=== PATIENT | male | born 1950 | race Caucasian/White ===

== ENCOUNTER 2022-07-07 14:59 | Inpatient (IN) ==
--- NOTE | 2022-07-07 15:19 | DR.EXTPAIN ---
HPI Time seen Time Seen by Provider: 07/07/22 15:13 Complaint/Symptoms Chief Complaint Doctor Comments: 72 y/o male presents with worsening swelling and pain of bilateral lower exts. Pain is a poor historian, has a h/o chronic edema, h/o cirrhosis. Bilateral leg swelling over the past several days. Has a rash of the right anterior thigh, red, non blanching. Thinks it is from his jeans rubbing against it. Denies any fever, chills. Is short of breath at times. Denies chest pain, nausea, vomiting, bowel or bladder complaints. Nurses notes reviewed Nurses Notes Review: Yes Source History Provided: Patient Mode of arrival Mode of Arrival: Wheelchair PMH PMH Past Medical History: Yes Past Medical History: Cirrhosis Past Medical History Comment: pt poor historian Past Surgical History Comment: pt poor historian Family History Family Medical History Comment: unavailable Social History Alcohol Use: DAILY ROS Review of Systems Constitutional: Weakness Eyes: No Symptoms Reported ENTM: No Symptoms Reported Respiratoy: No Symptoms Reported Cardiovascular: No Symptoms Reported Gastrointestinal/Abdominal: Abdominal Pain Genitourinary: No Symptoms Reported Neurological: Weakness Musculoskeletal: See HPI Integumentary: See HPI Hematologic/Lymphatic: No Symptoms Reported Psychiatric: No Symptoms Reported All Other Systems: Reviewed and Negative PE Vital Signs Vitals: Temperature 98.8 F Pulse Rate 106 Respiratory Rate 18 Blood Pressure [Left Arm] 120/87 Blood Pressure 124/58 O2 Sat by Pulse Oximetry 97 General General Appearance: Alert and In No Apparent Distress Head Head Exam: Normal Inspection Eyes Eye exam: PERRL and EOMI ENT ENT Exam: Normal Exam and Mucous Membranes Moist Neck Neck Exam: Normal Inspection and Full ROM Respiratory Respiratory Exam: Normal Lung Sounds Bilat; negative Accessory Muscle Use or Respiratory Distress Cardiovascular Cardiovascular Exam: Irregular Rhythm and Systolic Murmur (2/6, R ICS) Abdominal Exam Abdominal Exam: Soft and Other (+ hepatomegaly); negative Tenderness Extremities Extremities Exam: Edema (4+ pitting edema, to both thighs. + blisters, oozing of bilateral shins. ) Back Back Exam: Normal Inspection Neurological Neurological Exam: Alert, Oriented X3 and CN II-XII Intact; negative Motor Sensory Deficit Psychiatric Psychiatric Exam: Normal Affect and Normal Mood Other Exam Other Exam: + irregular erythematous purpura of R anterior thigh, non blanching. COURSE Treatment Treatment: 72 y/o male, h/o cirrhosis, presents with worsening bilateral leg swelling. 4+ pitting edema of the lower exts. + oozing, + R thigh purpura. No o bvious cellulitis. W/u initiated. 1648 - CXR without CHF. + pancytopenia. + hypokalemia (2.3). Troponin nml. Ammonia elevated at 44, Lactic acid up at 3.6. Recommend admission for treatment of his fluid overload, and correction of his hypokalemia. Will cover with zosyn for antibiotic coverage. Discussed with Dr Cedeno, covering, will treat with spironolactone/lasix, cautious IV fluids, potassium. ROR Labs Reviewed Laboratory Results Reviewed?: Yes Result Diagrams: 07/07/22 15:10 07/07/22 15:10 Laboratory: WBC 2.8 X10^3/uL (3.6-10.0) L 07/07/22 15:10 RBC 2.33 X10^6/uL (4.7-6.0) L 07/07/22 15:10 Hgb 7.1 g/dL (13.5-18.0) L 07/07/22 15:10 Hct 21.1 % (42.0-54.0) L 07/07/22 15:10 MCV 90.8 fL (80.0-100.0) 07/07/22 15:10 MCH 30.3 pg (27.0-34.0) 07/07/22 15:10 MCHC 33.4 g/dL (33.0-35.0) 07/07/22 15:10 RDW 21.5 % (11.6-16.5) H 07/07/22 15:10 Plt Count 30 X10^3/uL (150.0-450.0) L 07/07/22 15:10 Plt Count Comment Decreased (ADEQUATE) 07/07/22 15:10 MPV 7.2 fL (7.4-11.0) L 07/07/22 15:10 Neut % (Auto) 72.7 % (42.0-75.0) 07/07/22 15:10 Lymph % (Auto) 15.7 % (21.0-51.0) L 07/07/22 15:10 [place] % (Auto) 10.8 % (0.0-13.0) 07/07/22 15:10 Eos % (Auto) 0.6 % (0.9-2.9) L 07/07/22 15:10 Baso % (Auto) 0.2 % (0.2-1.0) 07/07/22 15:10 Neut # (Auto) 2.0 x10^3/uL (2.2-4.8) L 07/07/22 15:10 Lymph # (Auto) 0.4 X10^3/uL (1.3-2.9) L 07/07/22 15:10 [place] # (Auto) 0.3 x10^3/uL (0.3-0.8) 07/07/22 15:10 Eos # (Auto) 0.0 x10^3/uL (0.0-0.2) 07/07/22 15:10 Baso # (Auto) 0.0 X10^3/uL (0.0-0.1) 07/07/22 15:10 Absolute Nucleated RBC 0.2 /100WBC 07/07/22 15:10 Plt Morphology Comment Normal (NORMAL) 07/07/22 15:10 RBC Morphology Abnormal (NORMAL) 07/07/22 15:10 Anisocytosis 1+ A 07/07/22 15:10 Sodium 137 mmol/L (136-145) 07/07/22 15:10 Corrected Sodium 138 mmol/L (136-145) 07/07/22 15:10 Potassium 2.3 mmol/L (3.5-5.1) L* 07/07/22 15:10 Chloride 99 mmol/L (98-107) 07/07/22 15:10 Carbon Dioxide 31.8 mmol/L (21-32) 07/07/22 15:10 BUN 16 mg/dL (7-18) 07/07/22 15:10 Creatinine 1.20 mg/dL (0.70-1.30) 07/07/22 15:10 Est GFR (MDRD) Af Amer > 60 (>60) 07/07/22 15:10 Est GFR (MDRD) Non-Af > 60 (>60) 07/07/22 15:10 Glucose 146 mg/dL (65-99) H 07/07/22 15:10 Lactic Acid 3.6 mmol/L (0.4-2.0) H 07/07/22 15:10 Calcium 7.6 mg/dL (8.5-10.1) L 07/07/22 15:10 Corrected Calcium 9.1 mg/dL (8.5-10.1) 07/07/22 15:10 Total Bilirubin 1.70 mg/dL (0.2-1.0) H 07/07/22 15:10 AST 36 Units/L (15-37) 07/07/22 15:10 ALT 17 Units/L (12-78) 07/07/22 15:10 Alkaline Phosphatase 215 Units/L (46-116) H 07/07/22 15:10 Ammonia 44 umol/L (11-32) H 07/07/22 15:10 Troponin I High Sens 35.1 ng/L (4.0-60.0) 07/07/22 15:10 B-Natriuretic Peptide 454 pg/mL (0-79) H 07/07/22 15:10 Total Protein 5.6 g/dL (6.4-8.2) L 07/07/22 15:10 Albumin 2.1 g/dL (3.4-5.0) L 07/07/22 15:10 Globulin 3.5 g/dL (2.5-4.5) 07/07/22 15:10 Albumin/Globulin Ratio 0.6 Ratio (1.1-2.1) L 07/07/22 15:10 Lipase 33 Units/L (73-393) L 07/07/22 15:10 + pancytopenia, + hypokalemia. + elevated lactic acid, ammonia EKG Rate: 109 [place]: Normal Rhythm: Afib (w/RVR @ 109 bpm) ST: Normal Opioid Opioid Risk Tool Total: 0 Total Score Risk Category: Low Risk Copyright: Jamal PALACIOS predicting aberrant behaviors Discharge Plan Diagnosis Discharge Problem: Acute hypokalemia, Edema, Cirrhosis Discharge Plan Patient Disposition: ADMITTED INPATIENT Condition: Stable Orders to Discharge Patient Discharge Orders: Transfer (Routine); Ordered 07/07/22 Ordered By: Michael Walker
[2022-07-07 15:21] VITALS: BMI 26.6
[2022-07-07 15:43] LABS: BASOPHILS % (AUTO) 0.2 % (0.2-1.0); EOSINOPHILS % (AUTO) 0.6 % (0.9-2.9); HEMATOCRIT 21.1 % (42.0-54.0); HEMOGLOBIN 7.1 g/dL (13.5-18.0); LYMPHOCYTES # (AUTO) 0.4 X10^3/uL (1.3-2.9); LYMPHOCYTES % (AUTO) 15.7 % (21.0-51.0); MEAN CORPUSCULAR HEMOGLOBIN 30.3 pg (27.0-34.0); MEAN CORPUSCULAR HGB CONC 33.4 g/dL (33.0-35.0); MEAN CORPUSCULAR VOLUME 90.8 fL (80.0-100.0); MEAN PLATELET VOLUME 7.2 fL (7.4-11.0); MONOCYTES # (AUTO) 0.3 x10^3/uL (0.3-0.8); MONOCYTES % (AUTO) 10.8 % (0.0-13.0); NEUTROPHILS % (AUTO) 72.7 % (42.0-75.0); RED BLOOD COUNT 2.33 X10^6/uL (4.7-6.0); RED CELL DISTRIBUTION WIDTH 21.5 % (11.6-16.5); WHITE BLOOD COUNT 2.8 X10^3/uL (3.6-10.0)
[2022-07-07 15:52] LABS: ALANINE AMINOTRANSFERASE 17 Units/L (12-78); ALBUMIN 2.1 g/dL (3.4-5.0); ALKALINE PHOSPHATASE 215 Units/L (46-116); AMMONIA 44 umol/L (11-32); ASPARTATE AMINO TRANSFERASE 36 Units/L (15-37); BLOOD UREA NITROGEN 16 mg/dL (7-18); CALCIUM 7.6 mg/dL (8.5-10.1); CARBON DIOXIDE 31.8 mmol/L (21-32); CHLORIDE 99 mmol/L (98-107); COR CA(FOR HYPOALB) 9.1 mg/dL (8.5-10.1); COR NA(FOR HYPERGLY) 138 mmol/L (136-145); LIPASE 33 Units/L (73-393); SODIUM 137 mmol/L (136-145); TOTAL PROTEIN 5.6 g/dL (6.4-8.2); eGFR NON BLACK RACES > 60 (>60)
[2022-07-07 15:57] LABS: ANISOCYTOSIS 1+; PLATELET MORPHOLOGY COMMENT NORMAL (NORMAL)
[2022-07-07 15:59] LABS: LACTIC ACID 3.6 mmol/L (0.4-2.0)
--- NOTE | 2022-07-07 17:10 | RAD ---
HISTORYEDEMASTUDYCHEST, 1 VIEWCOMPARISONNoneTECHNIQUEPortable chest x-rayFINDINGSSkin folds overlie the right and left chest wall. Lungs are clear as are the pleural spaces. No free air or pneumothorax identified. The heart size and mediastinal contours are normal. No acute osseous abnormalities of the chest are demonstrated.IMPRESSIONNo pulmonary infiltrates, edema or pleural fluid collections.Electronically signed by: YVON CALLOWAY (Jul 07, 2022 17:09:00)
[2022-07-07] MEDS ORDERED: VENTOLIN or PROAIR HFA IN PRN (17:47)
[2022-07-07] MEDS ORDERED: PROVENTIL NEB TX 0.083% 2.5MG/ 3ML NEB PRN (17:49)
[2022-07-07] MEDS ORDERED: K-DUR TAB 20 MEQ PO ONE (18:00)
[2022-07-07] MEDS: D5 NS 1,000 ML IV 1,000 ML IV SCH (18:18)
[2022-07-07] MEDS: ZOSYN VIAL 3.375 GRAMS 3.375 G in NS 100 ML IV 100 ML IV SCH ×2 (19:45→22:07)
[2022-07-07] MEDS: K-RIDER 10 MEQ/NS 100 ML 10 MEQ/100 ML BAG IV SCH (20:34)
[2022-07-07] MEDS: ALDACTONE TAB 25 MG PO SCH (21:30)
[2022-07-07] MEDS: M.S. CONTIN 30 MG EXTENDED RELEASE PO SCH (21:30)
[2022-07-07] MEDS: REMERON PO SCH (21:31)
[2022-07-07] MEDS: LASIX IVP SCH (21:31)
[2022-07-08] MEDS: ZOSYN VIAL 3.375 GRAMS 3.375 G in NS 100 ML IV 100 ML IV SCH ×3 (05:19→21:09)
[2022-07-08] MEDS: ALDACTONE TAB 25 MG PO SCH ×3 (05:19→21:09)
[2022-07-08] MEDS: LASIX IVP SCH ×3 (05:19→21:09)
[2022-07-08] MEDS: K-RIDER 10 MEQ/NS 100 ML 10 MEQ/100 ML BAG IV SCH (06:17)
[2022-07-08] MEDS: PERCOCET TAB 5/325 MG PO PRN ×2 (06:20→18:50)
[2022-07-08 07:01] LABS: ALANINE AMINOTRANSFERASE 13 Units/L (12-78); ALBUMIN 1.7 g/dL (3.4-5.0); ALKALINE PHOSPHATASE 151 Units/L (46-116); ASPARTATE AMINO TRANSFERASE 27 Units/L (15-37); BLOOD UREA NITROGEN 14 mg/dL (7-18); CALCIUM 7.6 mg/dL (8.5-10.1); CARBON DIOXIDE 34.2 mmol/L (21-32); CHLORIDE 101 mmol/L (98-107); COR CA(FOR HYPOALB) 9.4 mg/dL (8.5-10.1); CREATININE 0.92 mg/dL (0.70-1.30); SODIUM 138 mmol/L (136-145); TOTAL PROTEIN 4.8 g/dL (6.4-8.2); eGFR NON BLACK RACES > 60 (>60)
[2022-07-08 07:04] LABS: BASOPHILS % (AUTO) 0.6 % (0.2-1.0); EOSINOPHILS % (AUTO) 1.3 % (0.9-2.9); LYMPHOCYTES # (AUTO) 0.4 X10^3/uL (1.3-2.9); LYMPHOCYTES % (AUTO) 18.7 % (21.0-51.0); MEAN CORPUSCULAR HEMOGLOBIN 29.6 pg (27.0-34.0); MEAN CORPUSCULAR HGB CONC 33.2 g/dL (33.0-35.0); MEAN CORPUSCULAR VOLUME 89.2 fL (80.0-100.0); MEAN PLATELET VOLUME 7.6 fL (7.4-11.0); MONOCYTES # (AUTO) 0.2 x10^3/uL (0.3-0.8); MONOCYTES % (AUTO) 9.7 % (0.0-13.0); NEUTROPHILS # (AUTO) 1.7 x10^3/uL (2.2-4.8); NEUTROPHILS % (AUTO) 69.7 % (42.0-75.0); WHITE BLOOD COUNT 2.4 X10^3/uL (3.6-10.0)
[2022-07-08 07:18] LABS: HEMATOCRIT 18.8 % (42.0-54.0); HEMOGLOBIN 6.2 g/dL (13.5-18.0)
[2022-07-08 07:52] LABS: ANISOCYTOSIS 1+; PLATELET MORPHOLOGY COMMENT NORMAL (NORMAL)
[2022-07-08] MEDS ORDERED: POTASSIUM CHL 60 MEQ/NS 0.45% 500 ML IV PRN (08:20)
[2022-07-08] MEDS ORDERED: K-RIDER 10 MEQ/NS 100 ML 10 MEQ/100 ML BAG IV PRN (08:20)
[2022-07-08] MEDS ORDERED: MICRO K EXTEN CAP 10 MEQ PO PRN (08:20)
[2022-07-08] MEDS ORDERED: POTASSIUM CHLORIDE LIQ 20 MEQ UDC PO PRN (08:20)
[2022-07-08] MEDS ORDERED: KLOR-CON PO PRN (08:20)
[2022-07-08] MEDS ORDERED: POTASSIUM CHL 40 MEQ/NS 0.45% 500 ML IV PRN (08:20)
[2022-07-08] MEDS: D5 NS 1,000 ML IV 1,000 ML IV SCH ×2 (08:57→21:08)
[2022-07-08] MEDS: M.S. CONTIN 30 MG EXTENDED RELEASE PO SCH ×2 (08:57→20:38)
[2022-07-08] MEDS: PRAVACHOL PO SCH (08:58)
[2022-07-08] MEDS: PriLOSEC PO SCH (08:58)
[2022-07-08] MEDS: NORVASC TAB 10 MG PO SCH (08:58)
[2022-07-08] MEDS: K-DUR TAB 20 MEQ PO PRN (08:59)
[2022-07-08] MEDS: SYNTHROID 75 mcg TAB PO SCH (08:59)
[2022-07-08] MEDS ORDERED: MAGNESIUM SULFATE 1 GRAM/100 mL PREMIX 1 G/100 ML BAG IV ONE (10:06)
[2022-07-08] MEDS: MAGNESIUM SULFATE 1 GRAM/100 mL PREMIX 1 G/100 ML BAG IV PRN ×2 (10:08→11:19)
[2022-07-08] MEDS ORDERED: NS 500 ML IV 500 ML IV ONE ×2 (15:46→15:54)
--- NOTE | 2022-07-08 19:41 | DR.H&P ---
H&P History & Physical for Day of: H&P Date: 07/08/22 Chief Complaint Chief Complaint: Swelling of the lower extremities Allergies Allergies Allergy/AdvReac Type Severity Reaction Status Date / Time No Known Drug Allergies Allergy Verified 07/07/22 17:06 History of Present Illness History of Present Illness: This is a 72-year-old white male who is a very poor historian. He reports he came to the emergency department yesterday because of redness and draining on his right upper thigh and bilateral lower extremities. He thinks he has cellulitis but exam revealed it looked more like chronic lymphedema. He does report having his cirrhosis likely from alcoholism. He reports that he still drinks beer but does not drink any whiskey or hard liquor at this time. He was noted to be profoundly hypokalemic with a potassium level in the low twos. He was also anemic with a hemoglobin of 6.2, platelet count of 20,000. He has been given K riders since coming in last night and despite that his potassium remains in the mid twos at this time. Past Medical History Past Medical History: Cirrhosis Past Surgical History Surgical History: Ortho Surgery Family History Family Medical History: Diabetes Mellitus and Cancer Social History Does patient currently use any type of tobacco product: Yes Have you used tobacco products in the last 12 months: Yes Type of Tobacco Use: Cigarettes Does any household member use tobacco: No Alcohol Use: Rarely Drug Use: None Medications Home Medications: No Known Drug Allergies Allergy (Verified 07/07/22 17:06) CONTINUE taking the following medications albuterol sulfate 90 mcg/actuation aerosol inhaler 2 puff inhalation Q4-6H PRN 07/07/22 [History] amlodipine 10 mg tablet 1 tab PO QDAY 07/07/22 [History] baclofen 10 mg tablet 1 tab PO TID 07/07/22 [History] furosemide 20 mg tablet 1 tab PO Q OTHER DAY 07/07/22 [History] hydrochlorothiazide 25 mg tablet 0.5 tab PO QDAY 07/07/22 [History] levothyroxine 75 mcg tablet 1 tab PO QAM 07/07/22 [History] mirtazapine 7.5 mg tablet 1 tab PO QPM 07/07/22 [History] morphine 30 mg tablet,extended release 1 tab PO BID 07/07/22 [History] omeprazole 20 mg capsule,delayed release 1 cap PO QDAY 07/07/22 [History] oxycodone-acetaminophen 10 mg-325 mg tablet 1 tab PO TID PRN 07/07/22 [History] potassium chloride 10 mEq tablet,extended release(part/cryst) 1 tab PO QDAY 07/07/22 [History] pravastatin 20 mg tablet 1 tab PO QDAY 07/07/22 [History] triamcinolone acetonide 0.1 % topical cream 1 applic topical BID 07/07/22 [History] Labs Result Diagrams: 07/08/22 16:06 07/08/22 16:06 Labs: Laboratory WBC 2.4 X10^3/uL (3.6-10.0) L 07/08/22 05:55 RBC 2.10 X10^6/uL (4.7-6.0) L 07/08/22 05:55 Hgb 6.2 g/dL (13.5-18.0) L* 07/08/22 05:55 Hct 18.8 % (42.0-54.0) L* 07/08/22 05:55 MCV 89.2 fL (80.0-100.0) 07/08/22 05:55 MCH 29.6 pg (27.0-34.0) 07/08/22 05:55 MCHC 33.2 g/dL (33.0-35.0) 07/08/22 05:55 RDW 21.0 % (11.6-16.5) H 07/08/22 05:55 Plt Count 51 X10^3/uL (150.0-450.0) L 07/08/22 16:06 Plt Count Comment Decreased (ADEQUATE) 07/08/22 05:55 MPV 7.6 fL (7.4-11.0) 07/08/22 05:55 Neut % (Auto) 69.7 % (42.0-75.0) 07/08/22 05:55 Lymph % (Auto) 18.7 % (21.0-51.0) L 07/08/22 05:55 [place] % (Auto) 9.7 % (0.0-13.0) 07/08/22 05:55 Eos % (Auto) 1.3 % (0.9-2.9) 07/08/22 05:55 Baso % (Auto) 0.6 % (0.2-1.0) 07/08/22 05:55 Neut # (Auto) 1.7 x10^3/uL (2.2-4.8) L 07/08/22 05:55 Lymph # (Auto) 0.4 X10^3/uL (1.3-2.9) L 07/08/22 05:55 [place] # (Auto) 0.2 x10^3/uL (0.3-0.8) L 07/08/22 05:55 Eos # (Auto) 0.0 x10^3/uL (0.0-0.2) 07/08/22 05:55 Baso # (Auto) 0.0 X10^3/uL (0.0-0.1) 07/08/22 05:55 Absolute Nucleated RBC 0.3 /100WBC 07/08/22 05:55 Total Counted 25 07/08/22 05:55 Neutrophils % (Manual) 75 % (39-76) 07/08/22 05:55 Lymphocytes % (Manual) 20 % (13-43) 07/08/22 05:55 Monocytes % (Manual) 5 % (4-9) 07/08/22 05:55 Plt Morphology Comment Normal (NORMAL) 07/08/22 05:55 RBC Morphology Abnormal (NORMAL) 07/08/22 05:55 Anisocytosis 1+ A 07/08/22 05:55 Sodium 138 mmol/L (136-145) 07/08/22 05:55 Corrected Sodium TNP 07/08/22 05:55 Potassium 2.7 mmol/L (3.5-5.1) L* 07/08/22 16:06 Chloride 101 mmol/L (98-107) 07/08/22 05:55 Carbon Dioxide 34.2 mmol/L (21-32) H 07/08/22 05:55 BUN 14 mg/dL (7-18) 07/08/22 05:55 Creatinine 0.92 mg/dL (0.70-1.30) 07/08/22 05:55 Est GFR (MDRD) Af Amer > 60 (>60) 07/08/22 05:55 Est GFR (MDRD) Non-Af > 60 (>60) 07/08/22 05:55 Glucose 102 mg/dL (65-99) H 07/08/22 05:55 POC Glucose (mg/dL) 200 mg/dL (65-99) H 07/08/22 16:04 Lactic Acid 2.4 mmol/L (0.4-2.0) H 07/07/22 21:10 Calcium 7.6 mg/dL (8.5-10.1) L 07/08/22 05:55 Corrected Calcium 9.4 mg/dL (8.5-10.1) 07/08/22 05:55 Magnesium 1.5 mg/dL (2.0-2.9) L 07/08/22 05:55 Total Bilirubin 1.70 mg/dL (0.2-1.0) H 07/08/22 05:55 AST 27 Units/L (15-37) 07/08/22 05:55 ALT 13 Units/L (12-78) 07/08/22 05:55 Alkaline Phosphatase 151 Units/L (46-116) H 07/08/22 05:55 Ammonia 34 umol/L (11-32) H 07/08/22 08:48 Troponin I High Sens 35.1 ng/L (4.0-60.0) 07/07/22 15:10 B-Natriuretic Peptide 454 pg/mL (0-79) H 07/07/22 15:10 Total Protein 4.8 g/dL (6.4-8.2) L 07/08/22 05:55 Albumin 1.7 g/dL (3.4-5.0) L 07/08/22 05:55 Globulin 3.1 g/dL (2.5-4.5) 07/08/22 05:55 Albumin/Globulin Ratio 0.5 Ratio (1.1-2.1) L 07/08/22 05:55 Lipase 33 Units/L (73-393) L 07/07/22 15:10 Blood Type B POSITIVE 07/08/22 08:23 Antibody Screen Negative 07/08/22 08:23 Crossmatch See Detail 07/08/22 08:23 Review of Systems Constitutional: Weakness and Malaise Eyes: No Symptoms Reported ENT: No Symptoms Reported Respiratory: No Symptoms Reported Cardiovascular: No Symptoms Reported Gastrointestinal: No Symptoms Reported Genitourinary: No Symptoms Reported Musculoskeletal: No Symptoms Reported Skin: Rash and Lesions Neurological: Weakness Physical Exam Vital Signs: Temperature 98.4 F Pulse Rate [Left Brachial] 114 Pulse Rate 106 Respiratory Rate 22 Blood Pressure [Left Arm] 129/60 Blood Pressure 132/59 O2 Sat by Pulse Oximetry 100 Oriented: Normal, Time, Person and Place Eyes: Normal Ear: Normal Nose: Normal Respiratory: Clear Throughout Cardiovascular: Normal Tenderness: Normal Skin: Rash, Maculopapular, Petechial and Red Musculoskeletal: Normal Psychiatric: Normal Mood Description: Calm Affect: Normal Speech Pattern: Clear and Appropriate Assessment/Plan (1) Acute hypokalemia: Status: Acute Plan: Potassium replacement protocol (2) Edema: Status: Acute Plan: Continue spironolactone (3) Cirrhosis: Status: Acute Plan: Patient advised to abstain from alcohol, consult gastroenterology. (4) Anemia: Status: Acute Plan: Type and cross 2 units packed red blood cells and transfuse (5) Thrombocytopenia: Status: Acute Plan: Transfuse 1 pack of platelets today. (6) Lymphedema of both lower extremities: Status: Acute Plan: Patient is currently receiving IV Zosyn which she was started on the emergency department for possible lower extremity cellulitis. We will consult general surgery for central line placement so we can transfuse blood for him today and give him a pack of platelets. Review H&P Reviewed: Yes Patient was examined?: Yes
[2022-07-08] MEDS: REMERON PO SCH (21:08)
[2022-07-09] MEDS ORDERED: NS 250 ML IV 250 ML IV ONE (00:17)
[2022-07-09 04:58] LABS: MONOCYTES # (AUTO) 0.6 x10^3/uL (0.3-0.8)
[2022-07-09 05:04] LABS: BASOPHILS % (AUTO) 0.9 % (0.2-1.0); EOSINOPHILS % (AUTO) 0.1 % (0.9-2.9); HEMATOCRIT 25.6 % (42.0-54.0); LYMPHOCYTES # (AUTO) 0.6 X10^3/uL (1.3-2.9); LYMPHOCYTES % (AUTO) 10.9 % (21.0-51.0); MEAN CORPUSCULAR HEMOGLOBIN 29.9 pg (27.0-34.0); MEAN CORPUSCULAR HGB CONC 34.1 g/dL (33.0-35.0); MEAN CORPUSCULAR VOLUME 87.7 fL (80.0-100.0); MONOCYTES % (AUTO) 11.5 % (0.0-13.0); NEUTROPHILS # (AUTO) 4.3 x10^3/uL (2.2-4.8); NEUTROPHILS % (AUTO) 76.6 % (42.0-75.0); RED BLOOD COUNT 2.93 X10^6/uL (4.7-6.0); WHITE BLOOD COUNT 5.6 X10^3/uL (3.6-10.0)
[2022-07-09 05:05] LABS: HEMOGLOBIN 8.7 g/dL (13.5-18.0)
[2022-07-09] MEDS: ALDACTONE TAB 25 MG PO SCH ×3 (05:11→21:11)
[2022-07-09] MEDS: LASIX IVP SCH ×3 (05:11→21:11)
[2022-07-09] MEDS: ZOSYN VIAL 3.375 GRAMS 3.375 G in NS 100 ML IV 100 ML IV SCH ×3 (05:12→21:11)
[2022-07-09 05:18] LABS: ALANINE AMINOTRANSFERASE 11 Units/L (12-78); ALBUMIN 1.8 g/dL (3.4-5.0); ALKALINE PHOSPHATASE 183 Units/L (46-116); ASPARTATE AMINO TRANSFERASE 27 Units/L (15-37); BLOOD UREA NITROGEN 14 mg/dL (7-18); CALCIUM 7.8 mg/dL (8.5-10.1); CHLORIDE 102 mmol/L (98-107); COR CA(FOR HYPOALB) 9.6 mg/dL (8.5-10.1); COR NA(FOR HYPERGLY) 139 mmol/L (136-145); CREATININE 0.87 mg/dL (0.70-1.30); SODIUM 138 mmol/L (136-145); TOTAL PROTEIN 5.3 g/dL (6.4-8.2); eGFR NON BLACK RACES > 60 (>60)
[2022-07-09] MEDS: K-DUR TAB 20 MEQ PO PRN (05:38)
[2022-07-09] MEDS: MAGNESIUM SULFATE 1 GRAM/100 mL PREMIX 1 G/100 ML BAG IV PRN ×2 (05:38→18:00)
[2022-07-09] MEDS ORDERED: ALBUMIN HUMAN 25%- 100 ML 100 ML IV ONE (09:00)
[2022-07-09] MEDS: D5 NS 1,000 ML IV 1,000 ML IV SCH ×2 (09:08→22:13)
[2022-07-09] MEDS: SYNTHROID 75 mcg TAB PO SCH (09:08)
[2022-07-09] MEDS: NORVASC TAB 10 MG PO SCH (09:08)
[2022-07-09] MEDS: M.S. CONTIN 30 MG EXTENDED RELEASE PO SCH ×2 (09:08→20:47)
[2022-07-09] MEDS: PriLOSEC PO SCH (09:08)
[2022-07-09] MEDS: PRAVACHOL PO SCH (09:08)
[2022-07-09] MEDS ORDERED: XYLOCAINE 1 % (PLAIN) ONE (10:59)
[2022-07-09 11:43] LABS: INR 2.01 (0.8-1.3)
--- NOTE | 2022-07-09 15:43 | PCM.PROG ---
Progress Note Progress Note for Day of Date of Exam: 07/09/22 Subjective Subjective: The patient is sitting up in bed having some breakfast this morning. He has no new complaints. 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 Ziegler who plans on seeing him later today. I have informed the patient about this and also counseled him on complete alcohol cessation secondary to his alcoholic cirrhosis. Dr. Sanders our general surgeon plans on a paracentesis later today. Past Medical Family Social History Allergies: Allergies No Known Drug Allergies Allergy (Verified 07/07/22 17:06) Review of Systems ROS: No change since H&P Vital Signs and I&O's Vital Signs: Temperature 98.1 F Pulse Rate [Left Brachial] 103 Pulse Rate 106 Respiratory Rate 20 Blood Pressure [Left Arm] 119/58 Blood Pressure 132/59 O2 Sat by Pulse Oximetry 97 Intake and Output: Intake & Output 07/07/22 07/08/22 07/09/22 07/10/22 11:59 11:59 11:59 11:59 Intake Total 1472 / 1472 4950 / 4950 500 / 500 Output Total 1350 / 1350 1050 / 1050 Balance 122 / 122 3900 / 3900 500 / 500 Physical Exam Oriented: Normal, Time, Person and Place Eyes: Normal Ear: Normal Nose: Normal Respiratory: Normal Cardiovascular: Normal Tenderness: Normal Skin: Rash, Maculopapular, Petechial and Red Musculoskeletal: Normal Psychiatric: Normal Mood Description: Calm Affect: Normal Speech Pattern: Appropriate Laboratory and Diagnostics Result Diagrams: 07/09/22 04:44 07/09/22 13:09 Labs: 07/09/22 13:09 Paracentesis Gram Stain - Final 07/07/22 15:24 Blood Blood Culture - Preliminary 07/07/22 15:10 Blood Blood Culture - Preliminary Laboratory WBC 5.6 X10^3/uL (3.6-10.0) 07/09/22 04:44 RBC 2.93 X10^6/uL (4.7-6.0) L 07/09/22 04:44 Hgb 8.7 g/dL (13.5-18.0) L D 07/09/22 04:44 Hct 25.6 % (42.0-54.0) L 07/09/22 04:44 MCV 87.7 fL (80.0-100.0) 07/09/22 04:44 MCH 29.9 pg (27.0-34.0) 07/09/22 04:44 MCHC 34.1 g/dL (33.0-35.0) 07/09/22 04:44 RDW 19.0 % (11.6-16.5) H 07/09/22 04:44 Plt Count 31 X10^3/uL (150.0-450.0) L 07/09/22 04:44 Plt Count Comment Decreased (ADEQUATE) 07/08/22 05:55 MPV 8.0 fL (7.4-11.0) 07/09/22 04:44 Neut % (Auto) 76.6 % (42.0-75.0) H 07/09/22 04:44 Lymph % (Auto) 10.9 % (21.0-51.0) L 07/09/22 04:44 [place] % (Auto) 11.5 % (0.0-13.0) 07/09/22 04:44 Eos % (Auto) 0.1 % (0.9-2.9) L 07/09/22 04:44 Baso % (Auto) 0.9 % (0.2-1.0) 07/09/22 04:44 Neut # (Auto) 4.3 x10^3/uL (2.2-4.8) 07/09/22 04:44 Lymph # (Auto) 0.6 X10^3/uL (1.3-2.9) L 07/09/22 04:44 [place] # (Auto) 0.6 x10^3/uL (0.3-0.8) 07/09/22 04:44 Eos # (Auto) 0.0 x10^3/uL (0.0-0.2) 07/09/22 04:44 Baso # (Auto) 0.0 X10^3/uL (0.0-0.1) 07/09/22 04:44 Absolute Nucleated RBC 0.1 /100WBC 07/09/22 04:44 Total Counted 25 07/08/22 05:55 Neutrophils % (Manual) 75 % (39-76) 07/08/22 05:55 Lymphocytes % (Manual) 20 % (13-43) 07/08/22 05:55 Monocytes % (Manual) 5 % (4-9) 07/08/22 05:55 Plt Morphology Comment Normal (NORMAL) 07/08/22 05:55 RBC Morphology Abnormal (NORMAL) 07/08/22 05:55 Anisocytosis 1+ A 07/08/22 05:55 PT 21.9 SECONDS (11.8-14.3) 07/09/22 11:22 INR Target Range - 07/09/22 11:22 INR 2.01 (0.8-1.3) H 07/09/22 11:22 APTT 42.7 SECONDS (22.9-36.5) H 07/09/22 11:22 PTT Comment - 07/09/22 11:22 Sodium 138 mmol/L (136-145) 07/09/22 04:44 Corrected Sodium 139 mmol/L (136-145) 07/09/22 04:44 Potassium 3.5 mmol/L (3.5-5.1) 07/09/22 04:44 Chloride 102 mmol/L (98-107) 07/09/22 04:44 Carbon Dioxide 32.0 mmol/L (21-32) 07/09/22 04:44 BUN 14 mg/dL (7-18) 07/09/22 04:44 Creatinine 0.87 mg/dL (0.70-1.30) 07/09/22 04:44 Est GFR (MDRD) Af Amer > 60 (>60) 07/09/22 04:44 Est GFR (MDRD) Non-Af > 60 (>60) 07/09/22 04:44 Glucose 167 mg/dL (65-99) H 07/09/22 13:09 POC Glucose (mg/dL) 157 mg/dL (65-99) H 07/09/22 11:48 Lactic Acid 2.4 mmol/L (0.4-2.0) H 07/07/22 21:10 Calcium 7.8 mg/dL (8.5-10.1) L 07/09/22 04:44 Corrected Calcium 9.6 mg/dL (8.5-10.1) 07/09/22 04:44 Magnesium 1.6 mg/dL (2.0-2.9) L 07/09/22 04:44 Total Bilirubin 3.10 mg/dL (0.2-1.0) H 07/09/22 04:44 AST 27 Units/L (15-37) 07/09/22 04:44 ALT 11 Units/L (12-78) L 07/09/22 04:44 Alkaline Phosphatase 183 Units/L (46-116) H 07/09/22 04:44 Ammonia 34 umol/L (11-32) H 07/08/22 08:48 Troponin I High Sens 35.1 ng/L (4.0-60.0) 07/07/22 15:10 B-Natriuretic Peptide 454 pg/mL (0-79) H 07/07/22 15:10 Total Protein 5.3 g/dL (6.4-8.2) L 07/09/22 04:44 Albumin Cancelled 07/09/22 13:09 Globulin 3.5 g/dL (2.5-4.5) 07/09/22 04:44 Albumin/Globulin Ratio 0.5 Ratio (1.1-2.1) L 07/09/22 04:44 Lipase 33 Units/L (73-393) L 07/07/22 15:10 Fluid pH 7.0 07/09/22 13:09 Cytology Specimen To follow 07/09/22 13:09 Blood Type B POSITIVE 07/08/22 08:23 Antibody Screen Negative 07/08/22 08:23 Crossmatch See Detail 07/08/22 08:23 Plan (1) Acute hypokalemia: Status: Acute Plan: Potassium replacement protocol (2) Edema: Status: Acute Plan: Continue spironolactone (3) Cirrhosis: Status: Acute Plan: Patient advised to abstain from alcohol, consult gastroenterology. (4) Anemia: Status: Acute Plan: Type and cross 2 units packed red blood cells and transfuse (5) Thrombocytopenia: Status: Acute Plan: Transfuse 1 pack of platelets today. (6) Lymphedema of both lower extremities: Status: Acute Plan: Patient is currently receiving IV Zosyn which she was started on the emergency department for possible lower extremity cellulitis. We will consult general surgery for central line placement so we can transfuse blood for him today and give him a pack of platelets. (7) Ascites: Status: Acute Plan: Paracentesis today per general surgery.
--- NOTE | 2022-07-09 18:07 | DR.CONSULT ---
Consult - Consultation for Day of: Date: 07/09/22 (Dr. Ziegler) - Chief Complaint Chief Complaint: Abnormal LFTs - History of Present Illness History of Present Illness: Pt is a 72 y/o who is referre for abnormal LFTs. Pt has no GI complaints. Denies dysphagia, dyspepsia, abdominal pain, N/V, constipation, diarrhea, melena, and hematochezia. Last EGD 5+ years ago. Pt reports previous colon, unable to recall when, but states "I'm due for a co lonoscopy now". Pt has a family history of colon cancer (father). He reports he came to the emergency department because of redness and draining on his right upper thigh and bilateral lower extremities. He thinks he has cellulitis but exam revealed it looked more like chronic lymphedema. He does report having his cirrhosis likely from alcoholism. He reports that he still drinks beer but does not drink any whiskey or hard liquor at this time. He was noted to be profoundly hypokalemic with a potassium level in the low twos. - Past Medical History Past Medical History: Cirrhosis - Past Surgical History Surgical History: Ortho Surgery - Family History Family Medical History: Diabetes Mellitus, Cancer - Social History Does patient currently use any type of tobacco product: Yes Have you used tobacco products in the last 12 months: Yes Type of Tobacco Use: Cigarettes Does any household member use tobacco: No Alcohol Use: Rarely Drug Use: None - Medications Home Medications: No Known Drug Allergies Allergy (Verified 07/07/22 17:06) CONTINUE taking the following medications albuterol sulfate 90 mcg/actuation aerosol inhaler 2 puff inhalation Q4-6H PRN 07/07/22 [History] amlodipine 10 mg tablet 1 tab PO QDAY 07/07/22 [History] baclofen 10 mg tablet 1 tab PO TID 07/07/22 [History] furosemide 20 mg tablet 1 tab PO Q OTHER DAY 07/07/22 [History] hydrochlorothiazide 25 mg tablet 0.5 tab PO QDAY 07/07/22 [History] levothyroxine 75 mcg tablet 1 tab PO QAM 07/07/22 [History] mirtazapine 7.5 mg tablet 1 tab PO QPM 07/07/22 [History] morphine 30 mg tablet,extended release 1 tab PO BID 07/07/22 [History] omeprazole 20 mg capsule,delayed release 1 cap PO QDAY 07/07/22 [History] oxycodone-acetaminophen 10 mg-325 mg tablet 1 tab PO TID PRN 07/07/22 [History] potassium chloride 10 mEq tablet,extended release(part/cryst) 1 tab PO QDAY 07/07/22 [History] pravastatin 20 mg tablet 1 tab PO QDAY 07/07/22 [History] triamcinolone acetonide 0.1 % topical cream 1 applic topical BID 07/07/22 [History] - Review of Systems Constitutional: No Symptoms Reported. denies: See HPI, Fever, Chills, Sweats, Weakness, Malaise, Other Eyes: No Symptoms Reported. denies: See HPI, Pain, Vision Change, Conjunctivae Inflammation, Eyelid Inflammation, Redness, Other ENT: No Symptoms Reported. denies: See HPI, Ear Pain, Ear Discharge, Nose Pain, Nose Discharge, Nose Congestion, Mouth Pain, Mouth Swelling, Throat Pain, Throat Swelling, Other Respiratory: No Symptoms Reported. denies: See HPI, Cough, Dry, Shortness of Breath, Hemoptysis, SOB with Excertion, Pleuritic Pain, Sputum, Wheezing, Other Cardiovascular: No Symptoms Reported, Edema. denies: Chest Pain, See HPI, Palpitations, Orthopnea, Paroxysmal Noc. Dyspnea, Light Headedness, Other Gastrointestinal: No Symptoms Reported. denies: See HPI, Nausea, Vomiting, Abdominal Pain, Diarrhea, Constipation, Melena, Hematochezia, Other Genitourinary: No Symptoms Reported. denies: See HPI, Dysuria, Frequency, Incontinence, Hematuria, Retention, Other Musculoskeletal: No Symptoms Reported. denies: See HPI, Shoulder Pain, Arm Pain, Back Pain, Hand Pain, Leg Pain, Foot Pain, Neck Pain, Other Skin: See HPI. denies: No Symptoms Reported, Rash, Lesions, Jaundice, Bruising, Wound, Ecchymosis, Other Neurological: No Symptoms Reported. denies: See HPI, Weakness, Numbness, Incoordination, Change in Speech, Confusion, Seizures, Other - Physical Exam Vital Signs: Temperature 98.3 F Pulse Rate [Left Brachial] 97 Pulse Rate 106 Respiratory Rate 18 Blood Pressure [Left Arm] 130/61 Blood Pressure 132/59 O2 Sat by Pulse Oximetry 99 Oriented: Normal. negative: Time, Person, Place, Not Oriented, Unable to test, Other Eyes: negative: Normal, Blurred Vision, Diplopia, Discharge, Pain, Redness, Photophobia, Other Ear: negative: Normal, Right, Left, Swelling, Ecchymosis, Hemotypanum, Abrasion, Laceration Nose: negative: Normal, Injected, Discharge, Blood, Other Throat: negative: Normal, Tonsillar Hypertrophy, Red, Exudate, Dry, Other Respiratory: Clear Throughout. negative: Diminished Throughout, Rhonchi Throughout, Rales Throughout, Wheezes Throughout, RUL Clear, RML Clear, RLL Clear, LYUDMILA Clear, LML Clear, LLL Clear, RUL Diminished, RML Diminished, RLL Diminished, LYUDMILA Diminished, LML Diminished, LLL Diminished, RUL Absent, RML Absent, RLL Absent, LYUDMILA Absent, LML Absent, LLL Absent, RUL Rhonchi, RML Rhonchi, RLL Rhonchi, LYUDMILA Rhonchi, LML Rhonchi, LLL Rhonchi, RUL Insp. Wheeze, RML Insp. Wheeze, RLL Insp. Wheeze, LYUDMILA Insp.Wheeze, LML Insp.Wheeze, LLL Insp.Wheeze, RUL Exp. Wheeze, RML Exp. Wheeze, RLL Exp. Wheeze, LYUDMILA Exp. Wheeze, LML Exp. Wheeze, LLL Exp. Wheeze, RUL Rales, RML Rales, RLL Rales, LYUDMILA Rales, LML Rales, LLL Rales, RUL Rub, RML Rub, RLL Rub, LYUDMILA Rub, LML Rub, LLL Rub, RUL Squeak, RML Squeak, RLL Squeak, LYUDMILA Squeak, LML Squeak, LLL Squeak Cardiovascular: Normal. negative: Tachycardia, Bradycardia, Irregular, S3, S4, Systolic, Diastolic, Murmur, Edema, Other : Normal. negative: Dysuria, Hematuria, Frequency, Discharge, Testicular Pain, Bleeding, , Other Auscultation: Bowel Sounds: Normal. negative: Bruit, Absent, Increased, Decreased, High Pitched, Other Palpation: negative: Normal, Spleen Enlarged, Liver Enlarged, Mass Pulsatile, Other Tenderness: Other. negative: Normal, Diffuse, RUQ, RLQ, LUQ, LLQ, Epigastric, Periumbilical, Suprapubic, Mild, Moderate, Severe, Rebound, Guarding, Rigidity Skin: Red (BLE). negative: Normal, Decreased Turgur, Rash, Papular, Macular, Maculopapular, Vesicular, Pustular, Petechial, Tender, Hot, Diaphoresis, Wound, Bruising, Ecchymosis, Other Musculoskeletal: negative: Normal, Right, Left, Shoulder, Clavicle, Arm, Elbow, Forearm, Wrist, Hand, Hip, Thigh, Knee, Leg, Ankle, Foot, Back:Thoracic, Back:Lumbar, Back:Midline, Back:Paraspinous, Pelvis, Swelling, Tender, Deformity, Pulse Deficit, Motor Deficit, Sensory Deficit, Instability, Crepitance Psychiatric: Normal. negative: Anxiety, Depression, Agitation, Other Mood Description: Calm. negative: Angry, Apathetic, Depressed, Fearful, Flat, Happy, Hostile, Sad, Suspicious, Withdrawn, Anxious, Appropriate, Labile Affect: negative: Angry, Anxious, Depressed, Flat, Hysterical, Quiet, Violent, Normal Speech Pattern: Clear. negative: Appropriate, Unclear, Inappropriate, Delayed, Slurred, Excessive, Aphasic, Artificially Ventilated, Trach(not ventilated) - Plan Plan: Assessment: 1. Liver cirrhosis, likely secondary to ETOH abuse, R/O other etiology. 2. Anemia. 3. GERD, H/O PUD. 4. Family history of colon cancer. Plan: Serologic liver workup, monitor LFTs. Monitor Hgb, transfuse as needed. May need EGD if recurrent drop in Hgb. Patient does not qualify for liver transplant due to active alcohol use. Plan D/W Dr. Ziegler - Allergies Allergies/Adverse Reactions: Allergies Allergy/AdvReac Type Severity Reaction Status Date / Time No Known Drug Allergies Allergy Verified 07/07/22 17:06
[2022-07-09] MEDS: NovoLIN R (or HumuLIN R) SC PRN (18:20)
[2022-07-09] MEDS: REMERON PO SCH (20:47)
[2022-07-10] MEDS: D5 NS 1,000 ML IV 1,000 ML IV SCH ×2 (00:58→11:22)
[2022-07-10 03:47] LABS: BASOPHILS % (AUTO) 0.3 % (0.2-1.0); EOSINOPHILS % (AUTO) 0.3 % (0.9-2.9); HEMATOCRIT 23.5 % (42.0-54.0); HEMOGLOBIN 8.2 g/dL (13.5-18.0); LYMPHOCYTES # (AUTO) 0.6 X10^3/uL (1.3-2.9); LYMPHOCYTES % (AUTO) 11.9 % (21.0-51.0); MEAN CORPUSCULAR HEMOGLOBIN 30.3 pg (27.0-34.0); MEAN CORPUSCULAR VOLUME 86.5 fL (80.0-100.0); MEAN PLATELET VOLUME 7.7 fL (7.4-11.0); MONOCYTES # (AUTO) 0.6 x10^3/uL (0.3-0.8); MONOCYTES % (AUTO) 12.1 % (0.0-13.0); NEUTROPHILS # (AUTO) 3.6 x10^3/uL (2.2-4.8); NEUTROPHILS % (AUTO) 75.4 % (42.0-75.0); RED BLOOD COUNT 2.72 X10^6/uL (4.7-6.0); RED CELL DISTRIBUTION WIDTH 19.1 % (11.6-16.5); WHITE BLOOD COUNT 4.7 X10^3/uL (3.6-10.0)
[2022-07-10 03:55] LABS: ALANINE AMINOTRANSFERASE 12 Units/L (12-78); ALKALINE PHOSPHATASE 185 Units/L (46-116); ASPARTATE AMINO TRANSFERASE 21 Units/L (15-37); BLOOD UREA NITROGEN 12 mg/dL (7-18); CALCIUM 7.8 mg/dL (8.5-10.1); CARBON DIOXIDE 34.5 mmol/L (21-32); CHLORIDE 101 mmol/L (98-107); COR CA(FOR HYPOALB) 9.4 mg/dL (8.5-10.1); COR NA(FOR HYPERGLY) 137 mmol/L (136-145); CREATININE 0.84 mg/dL (0.70-1.30); SODIUM 136 mmol/L (136-145); TOTAL PROTEIN 5.4 g/dL (6.4-8.2); eGFR NON BLACK RACES > 60 (>60)
[2022-07-10 04:15] LABS: IRON 44 ug/dL (50-175)
[2022-07-10] MEDS: MAGNESIUM SULFATE 1 GRAM/100 mL PREMIX 1 G/100 ML BAG IV PRN ×3 (04:39→14:22)
[2022-07-10] MEDS: ALDACTONE TAB 25 MG PO SCH ×3 (05:16→21:15)
[2022-07-10] MEDS: LASIX IVP SCH ×3 (05:17→21:14)
[2022-07-10] MEDS: ZOSYN VIAL 3.375 GRAMS 3.375 G in NS 100 ML IV 100 ML IV SCH ×3 (06:06→21:14)
[2022-07-10] MEDS: PERCOCET TAB 5/325 MG PO PRN ×2 (06:06→16:23)
[2022-07-10] MEDS: M.S. CONTIN 30 MG EXTENDED RELEASE PO SCH ×2 (09:06→20:23)
[2022-07-10] MEDS: PriLOSEC PO SCH (09:06)
[2022-07-10] MEDS: PRAVACHOL PO SCH (09:06)
[2022-07-10] MEDS: NORVASC TAB 10 MG PO SCH (09:06)
[2022-07-10] MEDS: SYNTHROID 75 mcg TAB PO SCH (09:06)
[2022-07-10] MEDS: ALBUMIN HUMAN 25%- 100 ML 100 ML IV SCH (09:07)
--- NOTE | 2022-07-10 13:36 | PCM.PROG ---
Progress Note Progress Note for Day of Date of Exam: 07/10/22 Subjective Subjective: The patient is sitting up in bed having some breakfast this morning. He has no new complaints. He spoke with a welding machine operator helper gas nurse practitioner yesterday. She has started a work-up on him for other causes of cirrhosis of the liver. Gram stain of the paracentesis fluid is negative thus far as well as the blood cultures x2 he had on admission. Overall he is looking better his potassium is still little low he needs replacement as well as his magnesium level. It is noted his platelet count is the same as yesterday at 31,000. He did receive the second unit of platelets yesterday. However it is noted that his hemoglobin has dropped from 8.7-8.2 this morning. We will repeat his labs again tomorrow after we correct his electrolytes today. And we will give him blood and platelets if needed tomorrow and we will also make sure he is on a proton pump inhibitor for GI protection at this time. Past Medical Family Social History Allergies: Allergies No Known Drug Allergies Allergy (Verified 07/07/22 17:06) Review of Systems ROS: No change since H&P Vital Signs and I&O's Vital Signs: Temperature 99.6 F Pulse Rate [Left Brachial] 98 Pulse Rate 103 Respiratory Rate 22 Blood Pressure [Left Arm] 118/58 Blood Pressure 132/59 O2 Sat by Pulse Oximetry 100 Intake and Output: Intake & Output 07/08/22 07/09/22 07/10/22 07/11/22 11:59 11:59 11:59 11:59 Intake Total 1472 / 1472 4950 / 4950 3742 / 3742 Output Total 1350 / 1350 1050 / 1050 9730 / 9730 Balance 122 / 122 3900 / 3900 -5988 / -5988 Physical Exam Oriented: Normal; negative Time, Person, Place, Not Oriented, Unable to test or Other Eyes: negative Normal, Blurred Vision, Diplopia, Discharge, Pain, Redness, Photophobia or Other Ear: negative Normal, Right, Left, Swelling, Ecchymosis, Hemotypanum, Abrasion or Laceration Nose: negative Normal, Injected, Discharge, Blood or Other Throat: negative Normal, Tonsillar Hypertrophy, Red, Exudate, Dry or Other Respiratory: Normal Cardiovascular: Normal; negative Tachycardia, Bradycardia, Irregular, S3, S4, Systolic, Diastolic, Murmur, Edema or Other : Normal; negative Dysuria, Hematuria, Frequency, Discharge, Testicular Pain, Bleeding, or Other Auscultation: Bowel Sounds: Normal; negative Bruit, Absent, Increased, Decreased, High Pitched or Other Tenderness: Other; negative Normal, Diffuse, RUQ, RLQ, LUQ, LLQ, Epigastric, Periumbilical, Suprapubic, Mild, Moderate, Severe, Rebound, Guarding or Rigidity Skin: Red (BLE); negative Normal, Decreased Turgur, Rash, Papular, Macular, Maculopapular, Vesicular, Pustular, Petechial, Tender, Hot, Diaphoresis, Wound, Bruising, Ecchymosis or Other Musculoskeletal: negative Normal, Right, Left, Shoulder, Clavicle, Arm, Elbow, Forearm, Wrist, Hand, Hip, Thigh, Knee, Leg, Ankle, Foot, Back:Thoracic, Back:Lumbar, Back:Midline, Back:Paraspinous, Pelvis, Swelling, Tender, Deformity, Pulse Deficit, Motor Deficit, Sensory Deficit, Instability or Crepitance Psychiatric: Normal; negative Anxiety, Depression, Agitation or Other Mood Description: Calm; negative Angry, Apathetic, Depressed, Fearful, Flat, Happy, Hostile, Sad, Suspicious, Withdrawn, Anxious, Appropriate or Labile Affect: negative Angry, Anxious, Depressed, Flat, Hysterical, Quiet, Violent or Normal Speech Pattern: Appropriate Laboratory and Diagnostics Result Diagrams: 07/10/22 03:26 07/10/22 09:25 Labs: 07/09/22 13:09 Paracentesis Gram Stain - Final 07/09/22 13:09 Paracentesis - Preliminary 07/07/22 15:24 Blood Blood Culture - Preliminary 07/07/22 15:10 Blood Blood Culture - Preliminary Laboratory WBC 4.7 X10^3/uL (3.6-10.0) 07/10/22 03:26 RBC 2.72 X10^6/uL (4.7-6.0) L 07/10/22 03:26 Hgb 8.2 g/dL (13.5-18.0) L 07/10/22 03:26 Hct 23.5 % (42.0-54.0) L 07/10/22 03:26 MCV 86.5 fL (80.0-100.0) 07/10/22 03:26 MCH 30.3 pg (27.0-34.0) 07/10/22 03:26 MCHC 35.0 g/dL (33.0-35.0) 07/10/22 03:26 RDW 19.1 % (11.6-16.5) H 07/10/22 03:26 Plt Count 31 X10^3/uL (150.0-450.0) L 07/10/22 03:26 Plt Count Comment Decreased (ADEQUATE) 07/08/22 05:55 MPV 7.7 fL (7.4-11.0) 07/10/22 03:26 Neut % (Auto) 75.4 % (42.0-75.0) H 07/10/22 03:26 Lymph % (Auto) 11.9 % (21.0-51.0) L 07/10/22 03:26 [place] % (Auto) 12.1 % (0.0-13.0) 07/10/22 03:26 Eos % (Auto) 0.3 % (0.9-2.9) L 07/10/22 03:26 Baso % (Auto) 0.3 % (0.2-1.0) 07/10/22 03:26 Neut # (Auto) 3.6 x10^3/uL (2.2-4.8) 07/10/22 03:26 Lymph # (Auto) 0.6 X10^3/uL (1.3-2.9) L 07/10/22 03:26 [place] # (Auto) 0.6 x10^3/uL (0.3-0.8) 07/10/22 03:26 Eos # (Auto) 0.0 x10^3/uL (0.0-0.2) 07/10/22 03:26 Baso # (Auto) 0.0 X10^3/uL (0.0-0.1) 07/10/22 03:26 Absolute Nucleated RBC 0.1 /100WBC 07/10/22 03:26 Total Counted 25 07/08/22 05:55 Neutrophils % (Manual) 75 % (39-76) 07/08/22 05:55 Lymphocytes % (Manual) 20 % (13-43) 07/08/22 05:55 Monocytes % (Manual) 5 % (4-9) 07/08/22 05:55 Plt Morphology Comment Normal (NORMAL) 07/08/22 05:55 RBC Morphology Abnormal (NORMAL) 07/08/22 05:55 Anisocytosis 1+ A 07/08/22 05:55 PT 21.9 SECONDS (11.8-14.3) 07/09/22 11:22 INR Target Range - 07/09/22 11:22 INR 2.01 (0.8-1.3) H 07/09/22 11:22 APTT 42.7 SECONDS (22.9-36.5) H 07/09/22 11:22 PTT Comment - 07/09/22 11:22 Sodium 136 mmol/L (136-145) 07/10/22 03:26 Corrected Sodium 137 mmol/L (136-145) 07/10/22 03:26 Potassium 3.4 mmol/L (3.5-5.1) L 07/10/22 09:25 Chloride 101 mmol/L (98-107) 07/10/22 03:26 Carbon Dioxide 34.5 mmol/L (21-32) H 07/10/22 03:26 BUN 12 mg/dL (7-18) 07/10/22 03:26 Creatinine 0.84 mg/dL (0.70-1.30) 07/10/22 03:26 Est GFR (MDRD) Af Amer > 60 (>60) 07/10/22 03:26 Est GFR (MDRD) Non-Af > 60 (>60) 07/10/22 03:26 Glucose 121 mg/dL (65-99) H 07/10/22 03:26 POC Glucose (mg/dL) 140 mg/dL (65-99) H 07/10/22 10:50 Lactic Acid 2.4 mmol/L (0.4-2.0) H 07/07/22 21:10 Calcium 7.8 mg/dL (8.5-10.1) L 07/10/22 03:26 Corrected Calcium 9.4 mg/dL (8.5-10.1) 07/10/22 03:26 Magnesium 1.4 mg/dL (2.0-2.9) L 07/10/22 03:26 Iron 44 ug/dL (50-175) L 07/10/22 03:26 Transferrin 121 mg/dL (202-364) L 07/10/22 03:26 Ferritin 56 ng/mL (26-388) 07/10/22 03:26 Total Bilirubin 2.10 mg/dL (0.2-1.0) H 07/10/22 03:26 AST 21 Units/L (15-37) 07/10/22 03:26 ALT 12 Units/L (12-78) 07/10/22 03:26 Alkaline Phosphatase 185 Units/L (46-116) H 07/10/22 03:26 Ammonia 34 umol/L (11-32) H 07/08/22 08:48 Troponin I High Sens 35.1 ng/L (4.0-60.0) 07/07/22 15:10 B-Natriuretic Peptide 454 pg/mL (0-79) H 07/07/22 15:10 Total Protein 5.4 g/dL (6.4-8.2) L 07/10/22 03:26 Albumin 2.0 g/dL (3.4-5.0) L 07/10/22 03:26 Globulin 3.4 g/dL (2.5-4.5) 07/10/22 03:26 Albumin/Globulin Ratio 0.6 Ratio (1.1-2.1) L 07/10/22 03:26 Lipase 33 Units/L (73-393) L 07/07/22 15:10 Fluid pH 7.0 07/09/22 13:09 Cytology Specimen To follow 07/09/22 13:09 Blood Type B POSITIVE 07/08/22 08:23 Antibody Screen Negative 07/08/22 08:23 Crossmatch See Detail 07/08/22 08:23 Plan (1) Acute hypokalemia: Status: Acute Plan: Potassium replacement protocol (2) Edema: Status: Acute Plan: Continue spironolactone (3) Cirrhosis: Status: Acute Plan: Patient advised to abstain from alcohol, consult gastroenterology. (4) Anemia: Status: Acute Narrative Support Text: Patient hemoglobin is dropped from 8.2 from 8.7. Plan: Recheck CBC again tomorrow. Since patient has had a drop in hemoglobin since he was given 2 units packed red blood cells I think it is pertinent to make sure his hemoglobin is stable for being discharged home. (5) Thrombocytopenia: Status: Acute Narrative Support Text: Patient received the second pack of platelets yesterday. His platelet count is unchanged from yesterday. Is holding steady at 31,000. Plan: Recheck platelet level in the morning. (6) Lymphedema of both lower extremities: Status: Acute Narrative Support Text: Patient's legs look better overall with less edema they are still mildly erythemic but he reports that there lies all the time. They are no longer weeping at this time Plan: Patient is currently receiving IV Zosyn which she was started on the emergency department for possible lower extremity cellulitis. We will consult general surgery for central line placement so we can transfuse blood for him today and give him a pack of platelets. (7) Ascites: Status: Acute Plan: Paracentesis today per general surgery. (8) Hypomagnesemia: Status: Acute Plan: Magnesium is being replaced per the protocol.
[2022-07-10] MEDS: K-DUR TAB 20 MEQ PO PRN (14:33)
--- NOTE | 2022-07-10 16:35 | PCM.PROG ---
Progress Note Progress Note for Day of Date of Exam: 07/10/22 Subjective Subjective: The patient is sitting up in bed having some breakfast this morning. He has no new complaints. He spoke with a machine shop worker nurse practitioner yesterday. She has started a work-up on him for other causes of cirrhosis of the liver. Gram stain of the paracentesis fluid is negative thus far as well as the blood cultures x2 he had on admission. Overall he is looking better his potassium is still little low he needs replacement as well as his magnesium level. It is noted his platelet count is the same as yesterday at 31,000. He did receive the second unit of platelets yesterday. However it is noted that his hemoglobin has dropped from 8.7-8.2 this morning. We will repeat his labs again tomorrow after we correct his electrolytes today. And we will give him blood and platelets if needed tomorrow and we will also make sure he is on a proton pump inhibitor for GI protection at this time. This is an addendum to the note done earlier today. After reviewing the patient's medication I see he was receiving oxycodone with Tylenol, I we will stop that because of the cirrhosis of his liver and give him plain oxycodone without Tylenol. Tylenol should be avoided in this patient. I will also stop his pravastatin because it is metabolized by the liver and I will also stop his amlodipine as it is known to cause fluid retention. Hopefully this will help with his chronic lymphedema and possibly fluid retention in other areas in his body. Past Medical Family Social History Allergies: Allergies No Known Drug Allergies Allergy (Verified 07/07/22 17:06) Review of Systems ROS: No change since H&P Vital Signs and I&O's Vital Signs: Temperature 99.6 F Pulse Rate [Left Brachial] 98 Pulse Rate 103 Respiratory Rate 22 Blood Pressure [Left Arm] 118/58 Blood Pressure 132/59 O2 Sat by Pulse Oximetry 100 Intake and Output: Intake & Output 07/08/22 07/09/22 07/10/22 07/11/22 11:59 11:59 11:59 11:59 Intake Total 1472 / 1472 4950 / 4950 3742 / 3742 1460 / 1460 Output Total 1350 / 1350 1050 / 1050 12519 / 45039 Balance 122 / 122 3900 / 3900 -6688 / -6688 1460 / 1460 Physical Exam Oriented: Normal; negative Time, Person, Place, Not Oriented, Unable to test or Other Eyes: negative Normal, Blurred Vision, Diplopia, Discharge, Pain, Redness, Photophobia or Other Ear: negative Normal, Right, Left, Swelling, Ecchymosis, Hemotypanum, Abrasion or Laceration Nose: negative Normal, Injected, Discharge, Blood or Other Throat: negative Normal, Tonsillar Hypertrophy, Red, Exudate, Dry or Other Respiratory: Normal Cardiovascular: Normal; negative Tachycardia, Bradycardia, Irregular, S3, S4, Systolic, Diastolic, Murmur, Edema or Other : Normal; negative Dysuria, Hematuria, Frequency, Discharge, Testicular Pain, Bleeding, or Other Auscultation: Bowel Sounds: Normal; negative Bruit, Absent, Increased, Decreased, High Pitched or Other Tenderness: Other; negative Normal, Diffuse, RUQ, RLQ, LUQ, LLQ, Epigastric, Periumbilical, Suprapubic, Mild, Moderate, Severe, Rebound, Guarding or Rigidity Skin: Red (BLE); negative Normal, Decreased Turgur, Rash, Papular, Macular, Maculopapular, Vesicular, Pustular, Petechial, Tender, Hot, Diaphoresis, Wound, Bruising, Ecchymosis or Other Musculoskeletal: negative Normal, Right, Left, Shoulder, Clavicle, Arm, Elbow, Forearm, Wrist, Hand, Hip, Thigh, Knee, Leg, Ankle, Foot, Back:Thoracic, Back:Lumbar, Back:Midline, Back:Paraspinous, Pelvis, Swelling, Tender, Deformity, Pulse Deficit, Motor Deficit, Sensory Deficit, Instability or Crepitance Psychiatric: Normal; negative Anxiety, Depression, Agitation or Other Mood Description: Calm; negative Angry, Apathetic, Depressed, Fearful, Flat, Happy, Hostile, Sad, Suspicious, Withdrawn, Anxious, Appropriate or Labile Affect: negative Angry, Anxious, Depressed, Flat, Hysterical, Quiet, Violent or Normal Speech Pattern: Appropriate Laboratory and Diagnostics Result Diagrams: 07/10/22 03:26 07/10/22 09:25 Labs: 07/09/22 13:09 Paracentesis Gram Stain - Final 07/09/22 13:09 Paracentesis - Preliminary 07/07/22 15:24 Blood Blood Culture - Preliminary 07/07/22 15:10 Blood Blood Culture - Preliminary Laboratory WBC 4.7 X10^3/uL (3.6-10.0) 07/10/22 03:26 RBC 2.72 X10^6/uL (4.7-6.0) L 07/10/22 03:26 Hgb 8.2 g/dL (13.5-18.0) L 07/10/22 03:26 Hct 23.5 % (42.0-54.0) L 07/10/22 03:26 MCV 86.5 fL (80.0-100.0) 07/10/22 03:26 MCH 30.3 pg (27.0-34.0) 07/10/22 03:26 MCHC 35.0 g/dL (33.0-35.0) 07/10/22 03:26 RDW 19.1 % (11.6-16.5) H 07/10/22 03:26 Plt Count 31 X10^3/uL (150.0-450.0) L 07/10/22 03:26 Plt Count Comment Decreased (ADEQUATE) 07/08/22 05:55 MPV 7.7 fL (7.4-11.0) 07/10/22 03:26 Neut % (Auto) 75.4 % (42.0-75.0) H 07/10/22 03:26 Lymph % (Auto) 11.9 % (21.0-51.0) L 07/10/22 03:26 [place] % (Auto) 12.1 % (0.0-13.0) 07/10/22 03:26 Eos % (Auto) 0.3 % (0.9-2.9) L 07/10/22 03:26 Baso % (Auto) 0.3 % (0.2-1.0) 07/10/22 03:26 Neut # (Auto) 3.6 x10^3/uL (2.2-4.8) 07/10/22 03:26 Lymph # (Auto) 0.6 X10^3/uL (1.3-2.9) L 07/10/22 03:26 [place] # (Auto) 0.6 x10^3/uL (0.3-0.8) 07/10/22 03:26 Eos # (Auto) 0.0 x10^3/uL (0.0-0.2) 07/10/22 03:26 Baso # (Auto) 0.0 X10^3/uL (0.0-0.1) 07/10/22 03:26 Absolute Nucleated RBC 0.1 /100WBC 07/10/22 03:26 Total Counted 25 07/08/22 05:55 Neutrophils % (Manual) 75 % (39-76) 07/08/22 05:55 Lymphocytes % (Manual) 20 % (13-43) 07/08/22 05:55 Monocytes % (Manual) 5 % (4-9) 07/08/22 05:55 Plt Morphology Comment Normal (NORMAL) 07/08/22 05:55 RBC Morphology Abnormal (NORMAL) 07/08/22 05:55 Anisocytosis 1+ A 07/08/22 05:55 PT 21.9 SECONDS (11.8-14.3) 07/09/22 11:22 INR Target Range - 07/09/22 11:22 INR 2.01 (0.8-1.3) H 07/09/22 11:22 APTT 42.7 SECONDS (22.9-36.5) H 07/09/22 11:22 PTT Comment - 07/09/22 11:22 Sodium 136 mmol/L (136-145) 07/10/22 03:26 Corrected Sodium 137 mmol/L (136-145) 07/10/22 03:26 Potassium 3.4 mmol/L (3.5-5.1) L 07/10/22 09:25 Chloride 101 mmol/L (98-107) 07/10/22 03:26 Carbon Dioxide 34.5 mmol/L (21-32) H 07/10/22 03:26 BUN 12 mg/dL (7-18) 07/10/22 03:26 Creatinine 0.84 mg/dL (0.70-1.30) 07/10/22 03:26 Est GFR (MDRD) Af Amer > 60 (>60) 07/10/22 03:26 Est GFR (MDRD) Non-Af > 60 (>60) 07/10/22 03:26 Glucose 121 mg/dL (65-99) H 07/10/22 03:26 POC Glucose (mg/dL) 140 mg/dL (65-99) H 07/10/22 10:50 Lactic Acid 2.4 mmol/L (0.4-2.0) H 07/07/22 21:10 Calcium 7.8 mg/dL (8.5-10.1) L 07/10/22 03:26 Corrected Calcium 9.4 mg/dL (8.5-10.1) 07/10/22 03:26 Magnesium 1.4 mg/dL (2.0-2.9) L 07/10/22 03:26 Iron 44 ug/dL (50-175) L 07/10/22 03:26 Transferrin 121 mg/dL (202-364) L 07/10/22 03:26 Ferritin 56 ng/mL (26-388) 07/10/22 03:26 Total Bilirubin 2.10 mg/dL (0.2-1.0) H 07/10/22 03:26 AST 21 Units/L (15-37) 07/10/22 03:26 ALT 12 Units/L (12-78) 07/10/22 03:26 Alkaline Phosphatase 185 Units/L (46-116) H 07/10/22 03:26 Ammonia 34 umol/L (11-32) H 07/08/22 08:48 Troponin I High Sens 35.1 ng/L (4.0-60.0) 07/07/22 15:10 B-Natriuretic Peptide 454 pg/mL (0-79) H 07/07/22 15:10 Total Protein 5.4 g/dL (6.4-8.2) L 07/10/22 03:26 Albumin 2.0 g/dL (3.4-5.0) L 07/10/22 03:26 Globulin 3.4 g/dL (2.5-4.5) 07/10/22 03:26 Albumin/Globulin Ratio 0.6 Ratio (1.1-2.1) L 07/10/22 03:26 Lipase 33 Units/L (73-393) L 07/07/22 15:10 Fluid pH 7.0 07/09/22 13:09 Cytology Specimen To follow 07/09/22 13:09 Blood Type B POSITIVE 07/08/22 08:23 Antibody Screen Negative 07/08/22 08:23 Crossmatch See Detail 07/08/22 08:23 Plan (1) Acute hypokalemia: Status: Acute Plan: Potassium replacement protocol (2) Edema: Status: Acute Plan: Continue spironolactone, Lasix and DC amlodipine 10 mg daily. (3) Cirrhosis: Status: Acute Plan: Patient advised to abstain from alcohol, consult gastroenterology. I will discontinue pravastatin today as well and also discontinue his Percocet 5/325 mg. Patient should not be receiving Tylenol because of his advanced liver disease. (4) Anemia: Status: Acute Plan: Recheck CBC again tomorrow. Since patient has had a drop in hemoglobin since he was given 2 units packed red blood cells I think it is pertinent to make sure his hemoglobin is stable for being discharged home. (5) Thrombocytopenia: Status: Acute Plan: Recheck platelet level in the morning. (6) Lymphedema of both lower extremities: Status: Acute Plan: Patient is currently receiving IV Zosyn which she was started on the emergency department for possible lower extremity cellulitis. We will consult general surgery for central line placement so we can transfuse blood for him today and give him a pack of platelets. (7) Ascites: Status: Acute Plan: Paracentesis today per general surgery. (8) Hypomagnesemia: Status: Acute Plan: Magnesium is being replaced per the protocol.
[2022-07-10] MEDS: NovoLIN R (or HumuLIN R) SC PRN (17:49)
[2022-07-10] MEDS ORDERED: REMERON ONE (19:14)
[2022-07-10] MEDS: REMERON PO SCH (20:23)
[2022-07-11 05:15] LABS: BASOPHILS # (AUTO) 0.1 X10^3/uL (0.0-0.1); BASOPHILS % (AUTO) 2.4 % (0.2-1.0); EOSINOPHILS % (AUTO) 0.7 % (0.9-2.9); HEMATOCRIT 23.7 % (42.0-54.0); LYMPHOCYTES # (AUTO) 0.5 X10^3/uL (1.3-2.9); LYMPHOCYTES % (AUTO) 19.3 % (21.0-51.0); MEAN CORPUSCULAR HEMOGLOBIN 29.7 pg (27.0-34.0); MEAN CORPUSCULAR HGB CONC 33.7 g/dL (33.0-35.0); MEAN PLATELET VOLUME 8.2 fL (7.4-11.0); MONOCYTES # (AUTO) 0.4 x10^3/uL (0.3-0.8); MONOCYTES % (AUTO) 14.4 % (0.0-13.0); NEUTROPHILS # (AUTO) 1.7 x10^3/uL (2.2-4.8); NEUTROPHILS % (AUTO) 63.2 % (42.0-75.0); RED BLOOD COUNT 2.69 X10^6/uL (4.7-6.0); RED CELL DISTRIBUTION WIDTH 18.9 % (11.6-16.5); WHITE BLOOD COUNT 2.7 X10^3/uL (3.6-10.0)
[2022-07-11] MEDS: D5 NS 1,000 ML IV 1,000 ML IV SCH ×2 (05:27→13:58)
[2022-07-11] MEDS: LASIX IVP SCH ×3 (05:28→21:06)
[2022-07-11] MEDS: ZOSYN VIAL 3.375 GRAMS 3.375 G in NS 100 ML IV 100 ML IV SCH ×3 (05:28→21:06)
[2022-07-11] MEDS: ALDACTONE TAB 25 MG PO SCH ×3 (05:29→21:03)
[2022-07-11 05:34] LABS: ALANINE AMINOTRANSFERASE 12 Units/L (12-78); ALBUMIN 2.2 g/dL (3.4-5.0); ALKALINE PHOSPHATASE 155 Units/L (46-116); ASPARTATE AMINO TRANSFERASE 22 Units/L (15-37); BLOOD UREA NITROGEN 11 mg/dL (7-18); CALCIUM 7.9 mg/dL (8.5-10.1); CARBON DIOXIDE 31.7 mmol/L (21-32); CHLORIDE 104 mmol/L (98-107); COR CA(FOR HYPOALB) 9.3 mg/dL (8.5-10.1); COR NA(FOR HYPERGLY) 141 mmol/L (136-145); CREATININE 0.74 mg/dL (0.70-1.30); MAGNESIUM 1.7 mg/dL (2.0-2.9); SODIUM 140 mmol/L (136-145); TOTAL PROTEIN 5.4 g/dL (6.4-8.2); eGFR NON BLACK RACES > 60 (>60)
[2022-07-11 05:39] LABS: AMMONIA 32 umol/L (11-32)
[2022-07-11] MEDS: MAGNESIUM SULFATE 1 GRAM/100 mL PREMIX 1 G/100 ML BAG IV PRN ×3 (06:05→17:44)
[2022-07-11] MEDS: K-DUR TAB 20 MEQ PO PRN (08:50)
[2022-07-11] MEDS: ALBUMIN HUMAN 25%- 100 ML 100 ML IV SCH (08:51)
[2022-07-11] MEDS: PriLOSEC PO SCH (08:51)
[2022-07-11] MEDS: SYNTHROID 75 mcg TAB PO SCH (08:51)
[2022-07-11] MEDS: M.S. CONTIN 30 MG EXTENDED RELEASE PO SCH ×2 (08:53→20:45)
[2022-07-11] MEDS: NovoLIN R (or HumuLIN R) SC PRN ×2 (11:34→17:15)
[2022-07-11 13:54] LABS: INR 1.41 (0.8-1.3)
[2022-07-11] MEDS: REMERON PO SCH (20:45)
[2022-07-12] MEDS: D5 NS 1,000 ML IV 1,000 ML IV SCH (01:44)
[2022-07-12 05:18] LABS: BASOPHILS % (AUTO) 0.3 % (0.2-1.0); EOSINOPHILS # (AUTO) 0.1 x10^3/uL (0.0-0.2); EOSINOPHILS % (AUTO) 1.8 % (0.9-2.9); HEMOGLOBIN 8.4 g/dL (13.5-18.0); LYMPHOCYTES # (AUTO) 0.9 X10^3/uL (1.3-2.9); LYMPHOCYTES % (AUTO) 30.6 % (21.0-51.0); MEAN CORPUSCULAR HEMOGLOBIN 29.9 pg (27.0-34.0); MEAN CORPUSCULAR HGB CONC 33.7 g/dL (33.0-35.0); MEAN CORPUSCULAR VOLUME 88.6 fL (80.0-100.0); MEAN PLATELET VOLUME 7.3 fL (7.4-11.0); MONOCYTES # (AUTO) 0.5 x10^3/uL (0.3-0.8); MONOCYTES % (AUTO) 18.3 % (0.0-13.0); NEUTROPHILS # (AUTO) 1.4 x10^3/uL (2.2-4.8); RED BLOOD COUNT 2.82 X10^6/uL (4.7-6.0); RED CELL DISTRIBUTION WIDTH 18.9 % (11.6-16.5); WHITE BLOOD COUNT 2.9 X10^3/uL (3.6-10.0)
[2022-07-12] MEDS: ALDACTONE TAB 25 MG PO SCH (05:20)
[2022-07-12] MEDS: ZOSYN VIAL 3.375 GRAMS 3.375 G in NS 100 ML IV 100 ML IV SCH (05:22)
[2022-07-12 05:24] LABS: BLOOD UREA NITROGEN 10 mg/dL (7-18); CALCIUM 8.3 mg/dL (8.5-10.1); CARBON DIOXIDE 29.1 mmol/L (21-32); CHLORIDE 103 mmol/L (98-107); CREATININE 0.89 mg/dL (0.70-1.30); SODIUM 139 mmol/L (136-145); eGFR NON BLACK RACES > 60 (>60)
[2022-07-12] MEDS: LASIX IVP SCH (05:24)
[2022-07-12 06:27] LABS: MAGNESIUM 1.6 mg/dL (2.0-2.9)
[2022-07-12] MEDS: PriLOSEC PO SCH (08:58)
[2022-07-12] MEDS: SYNTHROID 75 mcg TAB PO SCH (08:58)
[2022-07-12] MEDS: ALBUMIN HUMAN 25%- 100 ML 100 ML IV SCH (09:05)
[2022-07-12] MEDS: M.S. CONTIN 30 MG EXTENDED RELEASE PO SCH (09:05)
[2022-07-12 09:25] VITALS: BP 157/70
[2022-07-12 21:41] LABS: ALANINE AMINOTRANSFERASE 15 Units/L (12-78); ALBUMIN 2.8 g/dL (3.4-5.0); ALKALINE PHOSPHATASE 163 Units/L (46-116); ASPARTATE AMINO TRANSFERASE 25 Units/L (15-37); COR CA(FOR HYPOALB) 9.3 mg/dL (8.5-10.1)
[2022-07-13 06:16] LABS: HEPATITIS B SURFACE ANTIGEN Negative (Negative)
[2022-07-13 06:19] LABS: ANTI-NUCLEAR ANTIBODY TEST None Detected (None Detected)
== END 2022-07-12 12:19 | disposition home health service (06) | DRG 433 ==
LOC: ER 14:59 → MED/SURG 17:22
PROVIDERS: ADMIT Obstetrics & Gynecology Obstetrics; ATTEND Internal Medicine
DX: Z80.0 Family history of malignant neoplasm of digestive organs; R06.02 Shortness of breath; E87.6 Hypokalemia; E83.42 Hypomagnesemia; K70.31 Alcoholic cirrhosis of liver with ascites; R60.0 Localized edema; R94.5 Abnormal results of liver function studies; D64.89 Other specified anemias; K76.6 Portal hypertension; D69.6 Thrombocytopenia, unspecified; E11.65 Type 2 diabetes mellitus with hyperglycemia; I89.0 Lymphedema, not elsewhere classified; R79.1 Abnormal coagulation profile